=== PATIENT | male | born 1965 | race Asian ===

== ENCOUNTER 2018-05-01 14:06 | Inpatient (IN) | payer OTHER ==
[2018-05-01 15:21] LABS: Absolute Lymphocytes (CBC) 1.6 K/uL (0.7-4.9); Absolute Monocytes 1.7 K/uL (0.1-1.3); Absolute Neutrophil 10.6 K/uL (1.8-8.0); Basophils % 0.2 % (0-1.3); Eosinophils % 0.3 % (0-4.4); Hematocrit 48.2 % (39.6-49.0); Lymphocytes % 11.7 % (15.3-44.8); MCH 33.3 pg (27.0-35.0); MCV 98.2 fL (80-100); MPV 7.7 fL (7.6-11.3); Monocytes % 11.9 % (3.3-12.3); RBC Red Blood Cell Count 4.91 M/uL (4.33-5.43)
[2018-05-01 15:29] LABS: Potassium 3.7 mmol/L (3.5-5.1)
[2018-05-01] MEDS ORDERED: NA CHLORIDE 0.9% 500 ML ONE (15:43)
[2018-05-01] MEDS ORDERED: ONDANSETRON 4 MG/2 ML VIAL ONE (15:55)
[2018-05-01] MEDS ORDERED: MORPHINE 4 MG/ML SYR ONE (15:55)
[2018-05-01] MEDS ORDERED: IBUPROFEN 400 MG TAB PO PRN (16:03)
[2018-05-01] MEDS ORDERED: ONDANSETRON 4 MG/2 ML VIAL IV PRN (16:03)
--- NOTE | 2018-05-01 16:17 | P.HP ---
Certification for Inpatient Patient admitted to: Inpatient With expected LOS: >2 Midnights Patient will require the following post-hospital care: None Practitioner: I am a practitioner with admitting privileges, knowledge of patient current condition, hospital course, and medical plan of care. Services: Services provided to patient in accordance with Admission requirements found in Title 42 Section 412.3 of the Code of Federal Regulations Patient History Date of Service: 05/01/18 Primary Care Provider: none Reason for admission: Right elbow pain and erythema History of Present Illness: 53-year-old [place] male presented to emergency room with right elbow pain, erythema and warmth. Patient reports pain, erythema and warmth to the elbow for 3 days. It is been getting worse. He does not report any injury or insect bite. He denies any hip either. No chills noted. Denies any chest pain, shortness of breath. 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 It is been a long time since he has had a gout attack. Usually his attacks occur her to his toes. He does not take any medication. In the ER the patient was evaluated. Initial white count 13.9, sodium 141, potassium 3.7, BUN of 19, creatinine 1.3 with a GFR 58. Significant erythema, pain noted to the right elbow. Patient was admitted for treatment. When I saw the patient in the ER, he was not able to extend his arm. He appeared stable. Pain under control. Allergies No Known Allergies Allergy (Verified 09/02/15 09:21) Home medications list reviewed: Yes - Past Medical/Surgical History Diabetic: No -: Gout Past Surgical History: Patient denies surgical history Psychosocial/ Personal History: Patient is . 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 He has no children. - Family History Father -: Heart disease - Social History Smoking Status: Never smoker Alcohol use: No CD- Drugs: No Caffeine use: No Place of Residence: Home Review of Systems General: As per HPI Eyes: Unremarkable ENT: Unremarkable Respiratory: Unremarkable Cardiovascular: Unremarkable Gastrointestinal: Unremarkable Genitourinary: Unremarkable Musculoskeletal: Arm Pain, As per HPI Integumentary: As per HPI Neurological: Unremarkable Lymphatics: Unremarkable Physical Examination - Physical Exam General: Alert, In no apparent distress, Oriented x3, Cooperative HEENT: Atraumatic, Normocephalic, PERRLA, Mucous membr. moist/pink Neck: Supple, No Thyromegaly Respiratory: Clear to auscultation bilaterally, Normal air movement Cardiovascular: Normal pulses, Regular rate/rhythm Gastrointestinal: Normal bowel sounds, Soft and benign, Non-distended, No tenderness, No masses, No rebound, No guarding Musculoskeletal: Erythema (Right elbow ), Tenderness (Right elbow), Warmth ( Right elbow) Integumentary: Other (Erythema noted to the right elbow above the elbow and below the elbow noted. Pain noted. He is not able to extend his arm fully.) Neurological: Normal speech, Normal strength at 5/5 x4 extr, Normal tone, Normal affect - Studies Laboratory Data (last 24 hrs) 05/01/18 15:00: Sodium 141, Potassium 3.7, BUN 19 H, Creatinine 1.30, Glucose 99 05/01/18 15:00: WBC 13.9 H, Hgb 16.3, Hct 48.2, Plt Count 271 Assessment and Plan - Problems (Diagnosis) (1) Septic olecranon bursitis of right elbow Current Visit: Yes Status: Acute Plan: Blood cultures obtained. Will start IV vancomycin and Zosyn. Will check x- ray. Will console orthopedics to further evaluate. Patient may require intervention. Will reassess tomorrow. Continue with pain control medication. (2) Dehydration Current Visit: Yes Status: Acute Plan: Continue with IV fluids. Will monitor and adjust appropriately. (3) Renal insufficiency Current Visit: Yes Status: Acute Plan: Continue with IV fluids. Will monitor closely Discharge Plan: Home Plan to discharge in: Greater than 2 days - Advance Directives Does patient have a Living Will: No Does patient have a Durable POA for Healthcare: No - Code Status/Comfort Care Code Status Assessed: Yes Time Spent Managing Pts Care (In Minutes): 55
--- NOTE | 2018-05-01 16:37 | EDPHYS ---
Physician Documentation [facility] Name: Dany Cárdenas Jr Age: 53 yrs Sex: Male : 1965 Arrival Date: 05/01/2018 Time: 14:08 Bed 19 Private MD: ED Physician Brice Rao HPI: 05/01 16:46 This 53 yrs old Male presents to ER via Ambulatory with complaints of ARM kdr SWELLING. 16:46 The patient or guardian complains of decreased range of motion, pain, that is acute, kdr swelling, tenderness. The complaints affect the right tricep, right elbow and palmar aspect of right forearm. Context: The problem was sustained at home, resulted from unknown cause. Onset: The symptoms/episode began/occurred gradually, 1 month(s) ago, and became worse 3 day(s) ago. Treatment prior to arrival includes: no previous treatment. Modifying factors: The symptoms are alleviated by nothing. the symptoms are aggravated by nothing. Associated signs and symptoms: The patient has no apparent associated signs or symptoms. Severity of symptoms: At their worst the symptoms were mild, in the emergency department the symptoms have resolved. The patient has not experienced similar symptoms in the past. The patient has not recently seen a physician. Historical: - Allergies: 14:14 No Known Allergies; aj - Home Meds: 14:14 None [Active]; aj - PMHx: 14:14 Gout; aj - PSHx: 14:14 None; aj - Immunization history:: Adult Immunizations up to date. - Social history:: Smoking status: Patient/guardian denies using tobacco. - Ebola Screening: : Patient negative for fever greater than or equal to 101.5 degrees Fahrenheit, and additional compatible Ebola Virus Disease symptoms Patient denies exposure to infectious person Patient denies travel to an Ebola-affected area in the 21 days before illness onset No symptoms or risks identified at this time. ROS: 16:46 Constitutional: Negative for fever, chills, and weight loss, Eyes: Negative for injury, kdr pain, redness, and discharge, ENT: Negative for injury, pain, and discharge, Neck: Negative for injury, pain, and swelling, Respiratory: Negative for shortness of breath, cough, wheezing, and pleuritic chest pain, Abdomen/GI: Negative for abdominal pain, nausea, vomiting, diarrhea, and constipation, Back: Negative for injury and pain, : Negative for injury, bleeding, discharge, and swelling, MS/Extremity: Negative for injury and deformity, Skin: Negative for injury, rash, and discoloration, Neuro: Negative for headache, weakness, numbness, tingling, and seizure activity. Psych: Negative for depression, anxiety, suicide ideation, homicidal ideation, and hallucinations, Allergy/Immunology: Negative for hives, rash, and allergies, Endocrine: Negative for neck swelling, polydipsia, polyuria, polyphagia, and marked weight changes, Hematologic/Lymphatic: Negative for swollen nodes, abnormal bleeding, and unusual bruising. 16:46 Cardiovascular: Positive for palpitations, Negative for chest pain, edema, orthopnea, paroxysmal nocturnal dyspnea. Exam: 16:46 Constitutional: This is a well developed, well nourished patient who is awake, alert, kdr and in no acute distress. Head/Face: Normocephalic, atraumatic. Eyes: Pupils equal round and reactive to light, extra-ocular motions intact. Lids and lashes normal. Conjunctiva and sclera are non-icteric and not injected. Cornea within normal limits. Periorbital areas with no swelling, redness, or edema. Neck: Trachea midline, no thyromegaly or masses palpated, and no cervical lymphadenopathy. Supple, full range of motion without nuchal rigidity, or vertebral point tenderness. No Meningismus. Chest/axilla: Normal chest wall appearance and motion. Nontender with no deformity. No lesions are appreciated. Cardiovascular: Regular rate and rhythm with a normal S1 and S2. No gallops, murmurs, or rubs. Normal PMI, no JVD. No pulse deficits. Respiratory: Lungs have equal breath sounds bilaterally, clear to auscultation and percussion. No rales, rhonchi or wheezes noted. No increased work of breathing, no retractions or nasal flaring. Abdomen/GI: Soft, non-tender, with normal bowel sounds. No distension or tympany. No guarding or rebound. No evidence of tenderness throughout. Back: No spinal tenderness. No costovertebral tenderness. Full range of motion. Neuro: Awake and alert, GCS 15, oriented to person, place, time, and situation. Cranial nerves II-XII grossly intact. Motor strength 5/5 in all extremities. Sensory grossly intact. Cerebellar exam normal. Normal gait. Psych: Awake, alert, with orientation to person, place and time. Behavior, mood, and affect are within normal limits. 16:46 Musculoskeletal/extremity: ROM: limited active range of motion, limited passive range of motion, in the right arm, limited active range of motion due to pain, limited passive range of motion due to pain, Circulation is intact in all extremities. Sensation intact. Vital Signs: 14:14 BP 168 / 110; Pulse 114; Resp 19; Temp 98.3; Pulse Ox 99% on R/A; Weight 68.04 kg; aj Height 5 ft. 5 in. (165.10 cm); 15:40 BP 173 / 93; Pulse 95; Resp 18; Pulse Ox 98% on R/A; Pain 5/10; em 16:45 BP 166 / 99; Pulse 90; Resp 18; Temp 99.1(O); Pulse Ox 98% on R/A; Pain 3/10; em 14:14 Body Mass Index 24.96 (68.04 kg, 165.10 cm) aj MDM: 16:36 Patient medically screened. kdr 16:46 Data reviewed: vital signs, nurses notes, lab test result(s), EKG, radiologic studies. kdr Counseling: I had a detailed discussion with the patient and/or guardian regarding: the historical points, exam findings, and any diagnostic results supporting the discharge/admit diagnosis, lab results, radiology results, the need for further work-up and treatment in the hospital. 05/01 14:49 Order name: CBC with Diff; Complete [facility] 14:49 Order name: Chem 7; Complete [facility]: [facility] 05[facility] 14:49 Order name: Blood Culture [facility] 14:49 Order name: ESR; Complete [facility]: [facility] 05/[facility] 16:10 Order name: Vancomycin Level Trough [facility] 05/01 16:11 Order name: Basic Metabolic Panel [facility] 05/01 16:11 Order name: Basic Metabolic Panel [facility] 05/01 16:11 Order name: Lactate [facility] 05/01 16:11 Order name: Procalcitonin [facility] 05/01 16:11 Order name: Sedimentation Rate, Westergren [facility] 05/01 16:11 Order name: Uric Acid [facility] 05/01 16:11 Order name: Urinalysis [facility] 05/01 16:11 Order name: Basic Metabolic Panel [facility] 05/01 16:11 Order name: Basic Metabolic Panel [facility] 05/01 16:11 Order name: Basic Metabolic Panel [facility] 05/01 16:11 Order name: Basic Metabolic Panel [facility] 05/01 16:11 Order name: CBC with Automated Diff [facility] 05/01 16:11 Order name: CBC with Automated Diff [facility] 05/01 16:11 Order name: CBC with Automated Diff [facility] 05/01 16:11 Order name: CBC with Automated Diff [facility] 05/01 16:11 Order name: CBC with Automated Diff [facility] 05/01 16:11 Order name: CBC with Automated Diff [facility] 05/01 16:11 Order name: Magnesium [facility] 05/01 16:11 Order name: Magnesium [facility] 05/01 16:11 Order name: Magnesium [facility] 05/01 16:11 Order name: Magnesium [facility] 05/01 16:11 Order name: Magnesium ED[facility] 05/01 16:11 Order name: Magnesium [facility] 05/01 16:11 Order name: T4 Free [facility] 05/01 16:11 Order name: T4 Free [facility] 05/01 16:11 Order name: CONS Physician Consult [facility] 05/01 16:11 Order name: Heart Healthy [facility] 05/01 16:11 Order name: NPO [facility] 05/01 16:11 Order name: Thyroid Stimulating Hormone [facility] 05/01 16:11 Order name: Thyroid Stimulating Hormone [facility] 05/01 16:12 Order name: Elbow Right 3 View EDMS Administered Medications: 15:44 Drug: NS 0.9% 500 ml Route: IV; Rate: bolus; Site: left antecubital; em 17:04 Follow up: IV Status: Completed infusion; IV Intake: 500ml em 16:00 Drug: morphine 4 mg Route: IVP; Site: left antecubital; ss 17:04 Follow up: Response: No adverse reaction; Pain is decreased em 16:00 Drug: Zofran 4 mg Route: IVP; Site: left antecubital; ss 17:04 Follow up: Response: No adverse reaction em 16:45 Drug: vancoMYCIN 1.5 grams Route: IVPB; Rate: calculated rate; Site: left antecubital; em 17:05 Follow up: Response: No adverse reaction; IV Status: Infusion continued upon admission em 16:45 Drug: Clindamycin 600 mg Route: IVPB; Infused Over: 30 mins; Site: left antecubital; em 17:05 Follow up: Response: No adverse reaction; IV Status: Infusion continued upon admission em Disposition: 05/01/18 16:36 Hospitalization ordered by Lui Cabezas for Observation. Preliminary diagnosis is left elbow infection. - Bed requested for Telemetry/MedSurg (observation). - Status is Observation. em - Condition is Fair. - Problem is new. - Symptoms are unchanged. UTI on Admission? No Signatures: Dispatcher [employer] EDMS Angle Oconnell RN RN Brice Gallardo MD MD kdr Munoz, Edgar, [employer] Chinyere Madrigal RN RN ss Amy Torrez Corrections: (The following items were deleted from the chart) 16:43 16:36 Hospitalization Ordered by Lui Cabezas DO for Observation. Preliminary eb diagnosis is left elbow infection. Bed requested for Telemetry/MedSurg (observation). Status is Observation. Condition is Fair. Problem is new. Symptoms are unchanged. UTI on Admission? No. kdr 16:51 16:46 Constitutional: This is a well developed, well nourished patient who is awake, kdr alert, and in no acute distress. Head/Face: Normocephalic, atraumatic. Eyes: Pupils equal round and reactive to light, extra-ocular motions intact. Lids and lashes normal. Conjunctiva and sclera are non-icteric and not injected. Cornea within normal limits. Periorbital areas with no swelling, redness, or edema. Neck: Trachea midline, no thyromegaly or masses palpated, and no cervical lymphadenopathy. Supple, full range of motion without nuchal rigidity, or vertebral point tenderness. No Meningismus. Chest/axilla: Normal chest wall appearance and motion. Nontender with no deformity. No lesions are appreciated. Cardiovascular: Regular rate and rhythm with a normal S1 and S2. No gallops, murmurs, or rubs. Normal PMI, no JVD. No pulse deficits. Respiratory: Lungs have equal breath sounds bilaterally, clear to auscultation and percussion. No rales, rhonchi or wheezes noted. No increased work of breathing, no retractions or nasal flaring. Abdomen/GI: Soft, non-tender, with normal bowel sounds. No distension or tympany. No guarding or rebound. No evidence of tenderness throughout. Back: No spinal tenderness. No costovertebral tenderness. Full range of motion. Skin: Warm, dry with normal turgor. Normal color with no rashes, no lesions, and no evidence of cellulitis. MS/ Extremity: Pulses equal, no cyanosis. Neurovascular intact. Full, normal range of motion. Neuro: Awake and alert, GCS 15, oriented to person, place, time, and situation. Cranial nerves II-XII grossly intact. Motor strength 5/5 in all extremities. Sensory grossly intact. Cerebellar exam normal. Normal gait. Psych: Awake, alert, with orientation to person, place and time. Behavior, mood, and affect are within normal limits. kdr 17:23 16:43 05/01/2018 16:36 Hospitalization Ordered by Lui Cabezas DO for Observation. em Preliminary diagnosis is left elbow infection. Bed requested for Telemetry/MedSurg (observation). Status is Observation. Condition is Fair. Problem is new. Symptoms are unchanged. UTI on Admission? No. eb
--- NOTE | 2018-05-01 16:37 | ER ---
Nurse's Notes [facility] Name: Dany Cárdenas Jr Age: 53 yrs Sex: Male : 1965 Arrival Date: 05/01/2018 Time: 14:08 Bed 19 Private MD: Diagnosis: left elbow infection Presentation: 05/01 14:13 Presenting complaint: Patient states: Right elbow swelling x 3 days. Transition of aj care: patient was not received from another setting of care. Onset of symptoms was April 28, 2018. Risk Assessment: Do you want to hurt yourself or someone else? Patient reports no desire to harm self or others. Initial Sepsis Screen: Does the patient meet any 2 criteria? No. Patient's initial sepsis screen is negative. Does the patient have a suspected source of infection? No. Patient's initial sepsis screen is negative. Care prior to arrival: None. 14:13 Method Of Arrival: Ambulatory aj 14:13 Acuity: PAVITHRA 3 aj Triage Assessment: 14:14 General: Appears in no apparent distress. comfortable, Behavior is calm, cooperative, aj appropriate for age. Pain: Complains of pain in right elbow. Neuro: Level of Consciousness is awake, alert, obeys commands, Oriented to person, place, time, situation, Appropriate for age. Respiratory: Airway is patent Respiratory effort is even, unlabored, Respiratory pattern is regular, symmetrical. Derm: Skin is intact, is healthy with good turgor, Skin is pink, warm \T\ dry. normal. Musculoskeletal: Swelling present in right elbow Reports pain in right elbow. Historical: - Allergies: 14:14 No Known Allergies; aj - Home Meds: 14:14 None [Active]; aj - PMHx: 14:14 Gout; aj - PSHx: 14:14 None; aj - Immunization history:: Adult Immunizations up to date. - Social history:: Smoking status: Patient/guardian denies using tobacco. - Ebola Screening: : Patient negative for fever greater than or equal to 101.5 degrees Fahrenheit, and additional compatible Ebola Virus Disease symptoms Patient denies exposure to infectious person Patient denies travel to an Ebola-affected area in the 21 days before illness onset No symptoms or risks identified at this time. Screenin:07 Abuse screen: Denies threats or abuse. Nutritional screening: No deficits noted. em Tuberculosis screening: No symptoms or risk factors identified. Fall Risk None identified. Assessment: 15:00 General: Appears in no apparent distress. uncomfortable, Behavior is calm, cooperative. em Pain: Complains of pain in right arm and right elbow Pain currently is 5 out of 10 on a pain scale. Pain began 2-3 days ago. Neuro: Level of Consciousness is awake, alert, obeys commands, Oriented to person, place, time, situation. Cardiovascular: Capillary refill < 3 seconds Patient's skin is warm and dry. Respiratory: Airway is patent Respiratory effort is even, unlabored, Respiratory pattern is regular, symmetrical. GI: Abdomen is flat. : No signs and/or symptoms were reported regarding the genitourinary system. EENT: No signs and/or symptoms were reported regarding the EENT system. Derm: Skin is intact, Skin is pink, warm \T\ dry. redness and swelling noted to right elbow, minimal range of motion, started 3 days ago. Musculoskeletal: Circulation, motion, and sensation intact. Capillary refill < 3 seconds. 15:15 General: The previous assessment is accurate, call light remains within reach. . ss 15:40 Reassessment: Patient and/or family updated on plan of care and expected duration. Pain em level reassessed. Dr. Cabezas at bedside discussing POC. 16:00 Reassessment: Patient appears in no apparent distress at this time. Patient and/or em family updated on plan of care and expected duration. Pain level reassessed. Patient is alert, oriented x 3, equal unlabored respirations, skin warm/dry/pink. Patient states feeling better. Vital Signs: 14:14 BP 168 / 110; Pulse 114; Resp 19; Temp 98.3; Pulse Ox 99% on R/A; Weight 68.04 kg; aj Height 5 ft. 5 in. (165.10 cm); 15:40 BP 173 / 93; Pulse 95; Resp 18; Pulse Ox 98% on R/A; Pain 5/10; em 16:45 BP 166 / 99; Pulse 90; Resp 18; Temp 99.1(O); Pulse Ox 98% on R/A; Pain 3/10; em 14:14 Body Mass Index 24.96 (68.04 kg, 165.10 cm) aj ED Course: 13:00 No provider procedures requiring assistance completed. Inserted saline lock: 20 gauge em in left antecubital area, using aseptic technique. Blood collected. 13:00 Initial lab(s) drawn, by me, sent to lab. First set of blood cultures drawn by me. em 14:08 Patient arrived in ED. rg4 14:13 Triage completed. aj 14:14 Arm band placed on left wrist. Patient placed in an exam room. aj 14:22 Holger Corbett LVN is Primary Nurse. em 14:48 Brice Rao MD is Attending Physician. kdr 16:07 Patient has correct armband on for positive identification. Bed in low position. Call em light in reach. 16:34 Lui Cabezas DO is Hospitalizing Provider. kdr 17:03 Patient admitted, IV remains in place. em Administered Medications: 15:44 Drug: NS 0.9% 500 ml Route: IV; Rate: bolus; Site: left antecubital; em 17:04 Follow up: IV Status: Completed infusion; IV Intake: 500ml em 16:00 Drug: morphine 4 mg Route: IVP; Site: left antecubital; ss 17:04 Follow up: Response: No adverse reaction; Pain is decreased em 16:00 Drug: Zofran 4 mg Route: IVP; Site: left antecubital; ss 17:04 Follow up: Response: No adverse reaction em 16:45 Drug: vancoMYCIN 1.5 grams Route: IVPB; Rate: calculated rate; Site: left antecubital; em 17:05 Follow up: Response: No adverse reaction; IV Status: Infusion continued upon admission em 16:45 Drug: Clindamycin 600 mg Route: IVPB; Infused Over: 30 mins; Site: left antecubital; em 17:05 Follow up: Response: No adverse reaction; IV Status: Infusion continued upon admission em Intake: 17:04 IV: 500ml; Total: 500ml. em Outcome: 16:36 Decision to Hospitalize by Provider. kdr 17:03 Admitted to Med/surg accompanied by nurse, via wheelchair, room 422, with chart, Report em called to SPENCER Rahman 17:03 Condition: good 17:03 Instructed on the need for admit, Demonstrated understanding of instructions. 17:23 Patient left the ED. em Signatures: Angle Oconnell RN RN aj Rittger, Kevin, MD MD [facility] Holger Corbett LVN LVN em Chinyere Garduno, RN RN ss Patrick, Mallory rg4
[2018-05-01] MEDS ORDERED: CLINDAMYCIN INJ 600 MG in NA CHLORIDE 0.9% 50 ML IV ONE (17:00)
[2018-05-01] MEDS ORDERED: VANCOMYCIN 1.25 GM in NA CHLORIDE 0.9% 250 ML IVPB SCH (17:00)
--- NOTE | 2018-05-01 17:47 | RAD REPORT ---
EXAM DESCRIPTION: RAD - Elbow Right 3 View - 05/01/2018 5:21 pm CLINICAL HISTORY: Soft tissue swelling, septic bursitis COMPARISON: None. FINDINGS: No fracture is identified and no elevated posterior fat pad. There is no dislocation or pe riosteal reaction noted. No foreign body in the soft tissues. Posterior and medial soft tissue edema changes are present. IMPRESSION: Soft tissue swelling. No acute bone or joint finding seen.
[2018-05-01] MEDS: HYDROCODONE/APAP 7.5/325 MG TAB PO PRN (18:44)
[2018-05-01] MEDS: ENOXAPARIN 40 MG/0.4 ML SQ SCH (18:45)
[2018-05-01] MEDS: NA CHLORIDE 0.9% 1,000 ML IV SCH (18:46)
[2018-05-01] MEDS: PANTOPRAZOLE 40MG TABLET PO SCH (18:48)
[2018-05-01 18:50] LABS: Urine Appearance CLEAR; Urine Bilirubin NEGATIVE (NEG); Urine Blood NEGATIVE (NEG); Urine Color YELLOW; Urine Glucose NEGATIVE (NEG); Urine Protein NEGATIVE (NEG); Urine Specific Gravity 1.015 (1.005-1.030); Urine Urobilinogen 0.2 mg/dL (0.2-1.0)
[2018-05-01] MEDS: PIPER/TAZO/NS 3.375gm 3.375 GM/100 ML BAG IVPB SCH (18:53)
[2018-05-01 18:54] LABS: Urine Microscopic Reflex NO UMIC
[2018-05-01] MEDS ORDERED: VANCOMYCIN 500 MG in NA CHLORIDE 0.9% 100 ML IVPB ONE (21:00)
[2018-05-02] MEDS: HYDROCODONE/APAP 7.5/325 MG TAB PO PRN ×2 (00:47→16:08)
[2018-05-02] MEDS: PIPER/TAZO/NS 3.375gm 3.375 GM/100 ML BAG IVPB SCH ×3 (00:47→16:07)
[2018-05-02 05:24] LABS: Absolute Lymphocytes (CBC) 1.8 K/uL (0.7-4.9); Absolute Monocytes 1.5 K/uL (0.1-1.3); Basophils % 0.2 % (0-1.3); Eosinophils % 1.2 % (0-4.4); Hematocrit 39.7 % (39.6-49.0); Lymphocytes % 19.6 % (15.3-44.8); MCH 33.7 pg (27.0-35.0); MCV 98.9 fL (80-100); MPV 7.7 fL (7.6-11.3); RBC Red Blood Cell Count 4.01 M/uL (4.33-5.43)
[2018-05-02 05:53] LABS: Magnesium 2.1 mg/dL (1.8-2.4); Potassium 4.6 mmol/L (3.5-5.1); Thyroid Stimulating Hormone 1.87 uIU/mL (0.36-3.74)
[2018-05-02] MEDS: NA CHLORIDE 0.9% 1,000 ML IV SCH (06:39)
[2018-05-02] MEDS: PANTOPRAZOLE 40MG TABLET PO SCH (07:30)
[2018-05-02] MEDS ORDERED: VANCOMYCIN 1 GM in NA CHLORIDE 0.9% 500 ML IVPB SCH (09:00)
[2018-05-02] MEDS ORDERED: VANCOMYCIN 1.25 GM in NA CHLORIDE 0.9% 250 ML IVPB SCH (09:00)
[2018-05-02] MEDS: ENOXAPARIN 40 MG/0.4 ML SQ SCH (09:44)
--- NOTE | 2018-05-02 10:03 | P.PN ---
Subjective Date of Service: 05/02/18 Primary Care Provider: none Chief Complaint: Right elbow pain and erythema Subjective: Improving (Erythema and pain to the right elbow improved.) Physical Examination - Vital Signs Temperature: 96.7 F Blood Pressure: 140/76 Pulse: 64 Respirations: 20 Pulse Ox (%): 98 - Physical Exam General: Alert, In no apparent distress, Oriented x3, Cooperative HEENT: Atraumatic Neck: Supple Respiratory: Clear to auscultation bilaterally, Normal air movement Cardiovascular: Normal pulses, Regular rate/rhythm Gastrointestinal: Normal bowel sounds, Soft and benign, Non-distended, No tenderness, No masses, No rebound, No guarding Musculoskeletal: Other (Significantly less erythema to the right elbow. He has better [id number] since yesterday. Less pain noted. Less swelling noted.) Integumentary: Other (As above) Neurological: Normal speech, Normal strength at 5/5 x4 extr, Normal tone, Normal affect - Studies Laboratory Data (last 24 hrs) 05/01/18 15:00: Uric Acid 10.0 H 05/01/18 15:00: Sodium 141, Potassium 3.7, BUN 19 H, Creatinine 1.30, Glucose 99 05/01/18 15:00: WBC 13.9 H, Hgb 16.3, Hct 48.2, Plt Count 271 Medications List Reviewed: Yes Assessment & Plan - Problems (Diagnosis) (1) Septic olecranon bursitis of right elbow Onset Date: 05/02/18 Current Visit: Yes Status: Acute Plan: Patient improving with IV antibiotic therapy. Currently on vancomycin and Zosyn. Better range of motion, less pain, less swelling noted. Will have orthopedics evaluate patient. Patient may not require any intervention. I will turn the service over to Dr. Salazar tomorrow. I will go over the plan of care with her. (2) Dehydration Onset Date: 05/02/18 Current Visit: Yes Status: Acute Plan: Continue with IV fluids. Will monitor and adjust appropriately. (3) Renal insufficiency Onset Date: 05/02/18 Current Visit: Yes Status: Acute Plan: Continue with IV fluids. Will monitor closely Discharge Plan: Home Plan to discharge in: 24 Hours Time Spent Managing Pts Care (In Minutes): 55
[2018-05-02] MEDS: NACHLORIDE 0.45% 1,000 ML IV SCH ×2 (14:26→20:12)
--- NOTE | 2018-05-02 20:04 | P.CNS ---
Date of Consult: 05/02/18 Reason for Consult: septic bursitis left elbow Requesting Physician: Lui Cabezas Primary Care Provider: none Chief Complaint: Right elbow pain and erythema History of Present Illness: This patient noted onset of erythema and tenderness over point of olecranon Wednesday of last week. The elbow became more and more tender and swollen, but was not associated with fever or chills. The patient patient came to the ED Wednesday~ 2pm and was admitted with septic bursitis with empiric treatment with Vanc and Zosyn. The patient has had multiple episodes of gout confined to great toes, but has had no regular treatment with uricosuric like allopurinol. The patient' s arm has improved in 24 hours with iv abx and elevation. WBCs have decreased from 13.9 to 9.5 with neutrophils decrreasing from 76% to 68%. Uric acid level was high at 10.0, sedimentation rate was 7 mm/hr. Allergies No Known Allergies Allergy (Verified 09/02/15 09:21) Home Medications: NK [No Home Meds] 05/01/18 - Past Medical/Surgical History Diabetic: No -: Gout bilat toes Psychosocial/ Personal History: Patient is . 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 He has no children. - Family History Father Medical History: Heart disease - Social History Alcohol use: No CD- Drugs: No Caffeine use: No Place of Residence: Home Review of Systems 10-point ROS is otherwise unremarkable Physical Examination Temp Pulse Resp BP Pulse Ox 97.4 F 88 20 175/84 H 100 05/02/18 16:00 05/02/18 16:00 05/02/18 16:00 05/02/18 16:00 05/02/18 16:00 General: Alert, Oriented x3, Cooperative, Mild distress (Patient is able to flex right elbow from 70*to 115* freely moving back and forth to rule out intra articular sepsis. Septic joint most likely would be rigidly held at 45* with turgid capsule. ) HEENT: Atraumatic, Normocephalic, Mucous membr. moist/pink Neck: Supple Respiratory: Clear to auscultation bilaterally, Normal air movement Cardiovascular: Normal pulses, Regular rate/rhythm Capillary refill: <2 Seconds Gastrointestinal: Normal bowel sounds, Soft and benign, Non-distended Musculoskeletal: Swelling (Soft tissue edema palpable over olecranon, no fluid ballotment palpable for aspiration. Erythema shook on admit show redness receding.), Erythema, Tenderness, Warmth Integumentary: Tenderness/swelling (located over distal triceps, olecranon. and ulnar forearm.), Erythema, Warmth Neurological: Normal strength at 5/5 x4 extr, Sensation intact External genitalia: Deferred Rectal: Deferred - Problems (1) Septic olecranon bursitis of right elbow Onset Date: 05/02/18 Current Visit: Yes Status: Acute Plan: Would continue treatment for septic bursitis with current antibiotics. Cannot find fluid for aspiration. Will follow closely with I&D if sxs increasing, but have high suspicion of gout attack right olecranon bursa with Uric Acid 10.0. Will DC ibuprofen and start Celebrex 200 mg bid.
[2018-05-02] MEDS: CELECOXIB 100 MG CAPSULE PO SCH (20:12)
[2018-05-02] MEDS: TRAMADOL HCL 50 MG TAB PO PRN (21:40)
[2018-05-03] MEDS: PIPER/TAZO/NS 3.375gm 3.375 GM/100 ML BAG IVPB SCH ×3 (00:43→17:05)
[2018-05-03] MEDS: HYDROCODONE/APAP 7.5/325 MG TAB PO PRN ×3 (00:45→19:39)
[2018-05-03] MEDS: VANCOMYCIN 1.25 GM in NA CHLORIDE 0.9% 250 ML IVPB SCH ×2 (03:48→20:52)
[2018-05-03] MEDS: ACETAMINOPHEN 500 MG TAB PO PRN ×2 (03:50→20:52)
[2018-05-03] MEDS: NACHLORIDE 0.45% 1,000 ML IV SCH ×2 (04:39→17:06)
[2018-05-03 04:49] LABS: Absolute Lymphocytes (CBC) 1.8 K/uL (0.7-4.9); Absolute Monocytes 1.3 K/uL (0.1-1.3); Absolute Neutrophil 6.7 K/uL (1.8-8.0); Basophils % 0.2 % (0-1.3); Eosinophils % 1.2 % (0-4.4); Hematocrit 43.4 % (39.6-49.0); Lymphocytes % 18.3 % (15.3-44.8); MCH 33.7 pg (27.0-35.0); MCV 98.2 fL (80-100); MPV 7.9 fL (7.6-11.3); Monocytes % 13.4 % (3.3-12.3); RBC Red Blood Cell Count 4.42 M/uL (4.33-5.43)
[2018-05-03 05:02] LABS: Magnesium 2.2 mg/dL (1.8-2.4); Potassium 4.9 mmol/L (3.5-5.1)
[2018-05-03] MEDS: PANTOPRAZOLE 40MG TABLET PO SCH (06:32)
[2018-05-03] MEDS: CELECOXIB 100 MG CAPSULE PO SCH ×2 (09:17→20:51)
[2018-05-03] MEDS: TRAMADOL HCL 50 MG TAB PO PRN (12:06)
--- NOTE | 2018-05-03 16:01 | P.PN ---
Subjective Date of Service: 05/03/18 Primary Care Provider: none Chief Complaint: Right elbow pain and erythema Pt seen and examined at bedside with RN. Case DW with Patient and family at bedside. Feeling better today. States Pain is better and Swelling is getting better as well. Review of Systems General: As per HPI Physical Examination - Vital Signs Temperature: 97.4 F Blood Pressure: 103/82 Pulse: 59 Respirations: 18 Pulse Ox (%): 99 - Physical Exam General: Alert, In no apparent distress HEENT: Atraumatic, PERRLA, EOMI Neck: Supple, JVD not distended Respiratory: Clear to auscultation bilaterally, Normal air movement Cardiovascular: Regular rate/rhythm, Normal S1 S2 Gastrointestinal: Normal bowel sounds, No tenderness Musculoskeletal: Erythema, Tenderness, Warmth (Right Elbow. Swelling improved from before. FROM on the right elbow. Mild Pain noted. ) Integumentary: No rashes Neurological: Normal speech, Normal tone, Normal affect Lymphatics: No axilla or inguinal lymphadenopathy - Studies Medications List Reviewed: Yes Assessment & Plan - Problems (Diagnosis) (1) Septic olecranon bursitis of right elbow Onset Date: 05/02/18 Current Visit: Yes Status: Acute Plan: Possible Septic Olecranon bursitis vs Gouty arthritis -IV vanc and zosyn -ortho Consulted. Appreciate reccs -Cerebrex 200mg daily -Awaiting clinical Improvement (2) Renal insufficiency Onset Date: 05/02/18 Current Visit: Yes Status: Resolved (3) Dehydration Onset Date: 05/02/18 Current Visit: Yes Status: Resolved Discharge Plan: Home Plan to discharge in: 24 Hours - Code Status/Comfort Care Code Status Assessed: Yes Critical Care: No
--- NOTE | 2018-05-03 21:00 | P.PN ---
Date of Service: 05/03/18 S: PATIENT IS MORE COMFORTABLE TODAY, FULLY EXTENDING AND FLEXING THE RIGHT ELBOW. O: AFEBRILE, VSS, WBC 10.0, 67% NEUTROPHILS, HGB 14.9, GFR 63, PAIN 4,4,3,0,5/ 10. NORCO 7.5 3 TABS/DAY AND TRAMADOL 2 TABS TODAY. ARM HAS DECREASED CIRCUMFERENCE FURTHER TODAY, ERYTHEMA AND WARMTH DECREASING, BUT STILL INVOLVES ONLY MEDIAL ELBOW TO INCLUDE PROXIMAL 1/3 FOREARM AND DISTAL 1/4 UPPER ARM. NO FLUID FOCUSED IN OLECRANON BURSA TO PALPATION. A: NO INDICATION FOR I&D P: CONTINUE TO FOLLOW. PROCALCITONIN < 0.05, LACTIC ACID 1.1
[2018-05-04] MEDS: TRAMADOL HCL 50 MG TAB PO PRN ×2 (00:11→12:30)
[2018-05-04] MEDS: PIPER/TAZO/NS 3.375gm 3.375 GM/100 ML BAG IVPB SCH ×3 (00:11→17:27)
[2018-05-04] MEDS: NACHLORIDE 0.45% 1,000 ML IV SCH ×3 (03:00→19:56)
[2018-05-04] MEDS: HYDROCODONE/APAP 7.5/325 MG TAB PO PRN ×2 (03:46→17:27)
[2018-05-04 05:58] LABS: Absolute Lymphocytes (CBC) 1.2 K/uL (0.7-4.9); Absolute Monocytes 1.3 K/uL (0.1-1.3); Basophils % 0.6 % (0-1.3); Hematocrit 40.7 % (39.6-49.0); Lymphocytes % 17.6 % (15.3-44.8); MCH 33.9 pg (27.0-35.0); MCV 96.2 fL (80-100); Monocytes % 19.2 % (3.3-12.3); RBC Red Blood Cell Count 4.23 M/uL (4.33-5.43)
[2018-05-04 06:10] LABS: Magnesium 2.3 mg/dL (1.8-2.4); Potassium 4.4 mmol/L (3.5-5.1)
[2018-05-04 07:39] LABS: Blood Morphology Comment NOT SEEN (NOT SEEN); Platelet Estimate ADEQ
[2018-05-04] MEDS: PANTOPRAZOLE 40MG TABLET PO SCH (07:47)
[2018-05-04] MEDS: CELECOXIB 100 MG CAPSULE PO SCH ×2 (08:58→19:56)
[2018-05-04] MEDS: LISINOPRIL 10 MG TAB PO SCH (13:33)
[2018-05-04] MEDS: VANCOMYCIN 1.25 GM in NA CHLORIDE 0.9% 250 ML IVPB SCH (14:45)
--- NOTE | 2018-05-04 15:46 | P.PN ---
Subjective Date of Service: 05/04/18 Primary Care Provider: none Chief Complaint: Right elbow pain and erythema Pt seen and examined at bedside with RN. Case DW with Patient and family at bedside. Feeling better today. Swelling better, Warm to touch still. Review of Systems General: As per HPI Physical Examination - Vital Signs Temperature: 97.5 F Blood Pressure: 172/80 Pulse: 61 Respirations: 16 Pulse Ox (%): 98 - Physical Exam General: Alert, In no apparent distress, Oriented x3 HEENT: Atraumatic, PERRLA, EOMI Neck: Supple, JVD not distended Respiratory: Clear to auscultation bilaterally, Normal air movement Cardiovascular: Regular rate/rhythm, Normal S1 S2 Gastrointestinal: Normal bowel sounds, No tenderness Musculoskeletal: Swelling, Erythema, Tenderness, Warmth Integumentary: No rashes Neurological: Normal speech, Normal tone, Normal affect Lymphatics: No axilla or inguinal lymphadenopathy - Studies Medications List Reviewed: Yes Assessment & Plan - Problems (Diagnosis) (1) Septic olecranon bursitis of right elbow Onset Date: 05/02/18 Current Visit: Yes Status: Acute Plan: Possible Septic Olecranon bursitis vs Gouty arthritis -IV vanc and zosyn -ortho Consulted. Appreciate reccs -Cerebrex 200mg daily -Awaiting clinical Improvement (2) Renal insufficiency Onset Date: 05/02/18 Current Visit: Yes Status: Resolved (3) Dehydration Onset Date: 05/02/18 Current Visit: Yes Status: Resolved Discharge Plan: Home Plan to discharge in: 24 Hours - Code Status/Comfort Care Code Status Assessed: Yes Critical Care: No
[2018-05-04] MEDS ORDERED: HYDRALAZINE HCL 20 MG/ML VIAL IV ONE ×2 (16:15→18:30)
--- NOTE | 2018-05-04 18:37 | P.PN ---
Date of Service: 05/04/18 S: PATIENT DENIES PAIN TODAY, EASILY EXTENDING AND FLEXING HIS RIGHT ELBOW. O: AFEBRILE, BP 201-172/80-91 TODAY, WBC 6.6, 61% NEUTROPHILS, HGB 14.3, GFR 58 , PAIN 4,4,3,0,5/10. NORCO 7.5 3 TABS/DAY AND TRAMADOL 2 TABS TODAY. ARM HAS DECREASED EDEMA; ERYTHEMA AND WARMTH ALSO DECREASING TO FOCUS ON POINT OF OLECRANON WHERE SMALL AMOUNT OF BURSAL FLUID IS PALPABLE. A: NO INDICATION FOR I&D. PATIENT APPROPRIATE FOR CONVERSION TO P.O. ANTIBIOTIC AND DISCHARGE ON CELEBREX 200 mg BID FOR TREATMENT OF GOUT P: PATIENT CAN F/U MY OFFICE IN 7-10 DAYS OR PRN.
[2018-05-05] MEDS: PIPER/TAZO/NS 3.375gm 3.375 GM/100 ML BAG IVPB SCH ×2 (00:50→11:02)
[2018-05-05 04:18] LABS: Absolute Lymphocytes (CBC) 0.8 K/uL (0.7-4.9); Absolute Monocytes 0.9 K/uL (0.1-1.3); Absolute Neutrophil 5.9 K/uL (1.8-8.0); Basophils % 0.4 % (0-1.3); Eosinophils % 1.6 % (0-4.4); Hematocrit 41.9 % (39.6-49.0); Lymphocytes % 10.3 % (15.3-44.8); MCH 33.7 pg (27.0-35.0); MCV 97.3 fL (80-100); MPV 7.5 fL (7.6-11.3); Monocytes % 11.1 % (3.3-12.3); RBC Red Blood Cell Count 4.31 M/uL (4.33-5.43)
[2018-05-05 04:20] LABS: Magnesium 2.2 mg/dL (1.8-2.4); Potassium 4.5 mmol/L (3.5-5.1)
[2018-05-05] MEDS: LISINOPRIL 10 MG TAB PO SCH (07:59)
[2018-05-05] MEDS: CELECOXIB 100 MG CAPSULE PO SCH (08:00)
[2018-05-05] MEDS: PANTOPRAZOLE 40MG TABLET PO SCH (08:00)
[2018-05-05] MEDS: VANCOMYCIN 1.25 GM in NA CHLORIDE 0.9% 250 ML IVPB SCH (08:31)
[2018-05-05] MEDS: NACHLORIDE 0.45% 1,000 ML IV SCH (08:59)
--- NOTE | 2018-05-05 15:58 | P.DS ---
Admission Date: 05/01/18 Discharge Date: 05/05/18 Primary Care Provider: none Disposition: ROUTINE DISCHARGE Discharge Condition: GOOD Reason for Admission: Right elbow pain and erythema Consultations: Ortho - Problems (1) Septic olecranon bursitis of right elbow Onset Date: 05/02/18 Status: Acute (2) Renal insufficiency Onset Date: 05/02/18 Status: Resolved (3) Dehydration Onset Date: 05/02/18 Status: Resolved Brief History of Present Illness: 53-year-old [place] male presented to emergency room with right elbow pain, erythema and warmth. Patient reports pain, erythema and warmth to the elbow for 3 days. It is been getting worse. He does not report any injury or insect bite. He denies any hip either. No chills noted. Denies any chest pain, shortness of breath. 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 It is been a long time since he has had a gout attack. Usually his attacks occur her to his toes. He does not take any medication. In the ER the patient was evaluated. Initial white count 13.9, sodium 141, potassium 3.7, BUN of 19, creatinine 1.3 with a GFR 58. Significant erythema, pain noted to the right elbow. Patient was admitted for treatment. When I saw the patient in the ER, he was not able to extend his arm. He appeared stable. Pain under control. Hospital Course: Overall during the hospital stay patient remained stable Patient was initially admitted to the hospital for right-sided elbow swelling was thought to have right septic elbow bursitis. Orthopedic was consulted. Who recommended the patient be started on cerebrex 200 mg along with IV antibiotics for possible diagnosis of septic arthritis versus gouty arthritis. Patient had marked resolution in his symptoms over the next 48 hr were his swelling erythema and tenderness had completely resolved. After starting of cerebrex. Patient's cultures for blood came back negative and as his elbow swelling had subsided patient was then discharged home to have close followup with Orthopedics. Patient was asked to continue taking cerebrex for gout along with your saddle which was prescribed for total of 30 days. Patient was also asked to continue taking PO doxycycline for 10 days Vital Signs/Physical Exam: Temp Pulse Resp BP Pulse Ox 98.2 F 72 16 168/81 H 99 05/05/18 12:00 05/05/18 12:00 05/05/18 12:00 05/05/18 12:00 05/05/18 12:00 General: Alert, In no apparent distress HEENT: Atraumatic, PERRLA, EOMI Neck: Supple, JVD not distended Respiratory: Clear to auscultation bilaterally, Normal air movement Cardiovascular: Regular rate/rhythm, Normal S1 S2 Gastrointestinal: Normal bowel sounds, No tenderness Musculoskeletal: No tenderness Integumentary: No rashes Neurological: Normal speech, Normal tone, Normal affect Lymphatics: No axilla or inguinal lymphadenopathy Laboratory Data at Discharge: WBC 7.7 K/uL (4.3-10.9) D 05/05/18 03:43 Hgb 14.5 g/dL (13.6-17.9) 05/05/18 03:43 Hct 41.9 % (39.6-49.0) 05/05/18 03:43 Plt Count 224 K/uL (152-406) 05/05/18 03:43 Sodium 140 mmol/L (136-145) 05/05/18 03:43 Potassium 4.5 mmol/L (3.5-5.1) 05/05/18 03:43 BUN 13 mg/dL (7-18) 05/05/18 03:43 Creatinine 1.20 mg/dL (0.55-1.3) 05/05/18 03:43 Glucose 98 mg/dL (74-106) 05/05/18 03:43 Uric Acid 10.0 mg/dL (3.5-7.2) H 05/01/18 15:00 Magnesium 2.2 mg/dL (1.8-2.4) 05/05/18 03:43 Home Medications: Celecoxib [Celebrex*] 200 mg PO BID #60 cap 05/04/18 Febuxostat [Uloric] 80 mg PO DAILY #30 tablet 05/04/18 Pantoprazole [Protonix Tab*] 40 mg PO ACB #30 tab 05/04/18 Amlodipine Besylate [Norvasc] 5 mg PO DAILY #30 tablet 05/05/18 Doxycycline Hyclate 100 mg PO BID #14 capsule 05/05/18 Lisinopril [Prinivil*] 10 mg PO DAILY #30 tab 05/05/18 New Medications: Amlodipine Besylate [Norvasc] 5 mg PO DAILY #30 tablet Celecoxib [Celebrex*] 200 mg PO BID #60 cap Doxycycline Hyclate 100 mg PO BID #14 capsule Febuxostat [Uloric] 80 mg PO DAILY #30 tablet Lisinopril [Prinivil*] 10 mg PO DAILY #30 tab Pantoprazole [Protonix Tab*] 40 mg PO ACB #30 tab Diet: Regular Activity: Ad mehrdad Followup: Corwin Greenwood MD [ACTIVE - CAN ADMIT] - 1 Week (call the office to make an appointment in 7-10 days)
== END 2018-05-05 13:31 | disposition home or self-care (01) | DRG 558 ==
LOC: ER 14:06 → ERHOLD 16:04 → 4TH 16:57
PROVIDERS: ADMIT Family Medicine; ATTEND Family Medicine
DX: M71.121 Other infective bursitis, right elbow (principal); E86.0 Dehydration; N28.9 Disorder of kidney and ureter, unspecified; M10.9 Gout, unspecified
CPT/HCPCS: 36415; 80048; 80202; 81003; 83605; 83735; 84145; 84439; 84443; 84550; 85025; 85652; 87040; 96361; 96365; 96368; 96375; 99285; J0360; J1650; J2405; J2543; J7030

== ENCOUNTER 2019-06-14 11:25 | Emergency (ER) | payer OTHER ==
[2019-06-14] MEDS ORDERED: NA CHLORIDE 0.9% 1,000 ML ONE ×2 (12:15→13:53)
[2019-06-14 12:44] LABS: Absolute Lymphocytes (CBC) 1.2 K/uL (0.7-4.9); Basophils % 0.4 % (0-1.3); Hematocrit 42.8 % (39.6-49.0); Lymphocytes % 8.7 % (15.3-44.8); MPV 7.4 fL (7.6-11.3); RBC Red Blood Cell Count 4.43 M/uL (4.33-5.43)
[2019-06-14 12:56] LABS: Potassium 4.6 mmol/L (3.5-5.1); Uric Acid 5.1 mg/dL (3.5-7.2)
[2019-06-14] MEDS ORDERED: dexAMETHasone 10 MG/ML VIAL ONE (12:56)
[2019-06-14] MEDS ORDERED: DIAZEPAM 10 MG/2 ML INJ SYRINGE ONE (12:57)
--- NOTE | 2019-06-14 13:45 | EDPHYS ---
Physician Documentation [facility] Name: Dany Cárdenas Jr Age: 54 yrs Sex: Male : 1965 Arrival Date: 06/14/2019 Time: 11:31 Bed 26 Private MD: ED Physician Brice Rao HPI: 06/14 12:53 This 54 yrs old Male presents to ER via Wheelchair with complaints of Gout. snw 12:53 The patient presents with decreased range of motion, pain, that is acute, swelling, snw tenderness. The complaints affect the right ankle and left wrist. Context: The problem was sustained at home, resulted from "maybe I ate something", painful. Onset: The symptoms/episode began/occurred suddenly, 3 day(s) ago, and became worse and became persistent. Associated signs and symptoms: Pertinent positives: swelling. Severity of symptoms: At their worst the symptoms were moderate, severe. The patient has experienced similar episodes in the past, multiple times. The patient has not recently seen a physician, pt with difference of opinion with PCP and has not been in a while. Has not been taking allopurinol since . Historical: - Allergies: 11:39 No Known Allergies; iw - Home Meds: 11:39 None [Active]; iw - PMHx: 11:39 Gout; iw - PSHx: 11:39 None; iw - Immunization history:: Adult Immunizations up to date. - Social history:: Smoking status: Patient/guardian denies using tobacco. - Ebola Screening: : Patient negative for fever greater than or equal to 101.5 degrees Fahrenheit, and additional compatible Ebola Virus Disease symptoms Patient denies exposure to infectious person Patient denies travel to an Ebola-affected area in the 21 days before illness onset No symptoms or risks identified at this time. ROS: 12:52 Constitutional: Negative for fever, chills, and weight loss, Eyes: Negative for injury, snw pain, redness, and discharge, ENT: Negative for injury, pain, and discharge, Neck: Negative for injury, pain, and swelling, Cardiovascular: Negative for chest pain, palpitations, and edema, Respiratory: Negative for shortness of breath, cough, wheezing, and pleuritic chest pain, Abdomen/GI: Negative for abdominal pain, nausea, vomiting, diarrhea, and constipation, Back: Negative for injury and pain, : Negative for injury, bleeding, discharge, and swelling, Skin: Negative for injury, rash, and discoloration, Neuro: Negative for headache, weakness, numbness, tingling, and seizure. 12:52 MS/extremity: Positive for decreased range of motion, pain, swelling, of the right ankle and left wrist. Exam: 12:50 Constitutional: This is a well developed, well nourished patient who is awake, alert, snw and in no acute distress. Head/Face: Normocephalic, atraumatic. Eyes: Pupils equal round and reactive to light, extra-ocular motions intact. Lids and lashes normal. Conjunctiva and sclera are non-icteric and not injected. Cornea within normal limits. Periorbital areas with no swelling, redness, or edema. ENT: Nares patent. No nasal discharge, no septal abnormalities noted. Tympanic membranes are normal and external auditory canals are clear. Oropharynx with no redness, swelling, or masses, exudates, or evidence of obstruction, uvula midline. Mucous membranes moist. Neck: Trachea midline, no thyromegaly or masses palpated, and no cervical lymphadenopathy. Supple, full range of motion without nuchal rigidity, or vertebral point tenderness. No Meningismus. Chest/axilla: Normal chest wall appearance and motion. Nontender with no deformity. No lesions are appreciated. Cardiovascular: Regular rate and rhythm with a normal S1 and S2. No gallops, murmurs, or rubs. Normal PMI, no JVD. No pulse deficits. Respiratory: Lungs have equal breath sounds bilaterally, clear to auscultation and percussion. No rales, rhonchi or wheezes noted. No increased work of breathing, no retractions or nasal flaring. Abdomen/GI: Soft, non-tender, with normal bowel sounds. No distension or tympany. No guarding or rebound. No evidence of tenderness throughout. Back: No spinal tenderness. No costovertebral tenderness. Full range of motion. Skin: Warm, dry with normal turgor. Normal color with no rashes, no lesions, and no evidence of cellulitis. Neuro: Awake and alert, GCS 15, oriented to person, place, time, and situation. Cranial nerves II-XII grossly intact. Motor strength 5/5 in all extremities. Sensory grossly intact. Cerebellar exam normal. Normal gait. Psych: Awake, alert, with orientation to person, place and time. Behavior, mood, and affect are within normal limits. 12:50 Musculoskeletal/extremity: Extremities: grossly normal except: noted in the right ankle and left wrist: decreased ROM, swelling, tenderness, ROM: limited active range of motion due to pain, in the right ankle and left wrist, Circulation is intact in all extremities. Sensation intact. Vital Signs: 11:39 BP 163 / 100; Pulse 125; Resp 16 S; Temp 98.2(O); Pulse Ox 100% on R/A; Weight 66.68 iw kg; Height 5 ft. 4 in. (162.56 cm); Pain 10/10; 13:11 BP 153 / 100; Pulse 117; Resp 18; Temp 99; Pulse Ox 100% on R/A; mg2 14:29 BP 165 / 91; Pulse 110; Resp 18; Pulse Ox 100% on R/A; mg2 14:47 BP 158 / 81; Pulse 99; Resp 15; Temp 98(O); Pulse Ox 100% ; rv 11:39 Body Mass Index 25.23 (66.68 kg, 162.56 cm) iw MDM: 12:05 Patient medically screened. snw 13:48 Data reviewed: vital signs, nurses notes. Data interpreted: Pulse oximetry: on room air snw is 100 %. Interpretation: normal. Counseling: I had a detailed discussion with the patient and/or guardian regarding: the historical points, exam findings, and any diagnostic results supporting the discharge/admit diagnosis, lab results, the need for outpatient follow up, to return to the emergency department if symptoms worsen or persist or if there are any questions or concerns that arise at home. Special discussion: I have referred the patient to see his PCP for further evaluation of high blood pressure. Based on the history and exam findings, there is no indication for further emergent testing or inpatient evaluation. I discussed with the patient/guardian the need to see the primary care provider for further evaluation of the symptoms. 06/14 12:07 Order name: CBC with Diff; Complete Time: 12:50 snw 06/14 12:07 Order name: Chem 7; Complete Time: 13:09 snw 06/14 12:07 Order name: Uric Acid; Complete Time: 13:09 snw 06/14 13:10 Order name: Vital Signs; Complete Time: 13:27 snw 06/14 13:48 Order name: Wrist Splint: left; Complete Time: 13:56 snw 06/14 13:48 Order name: Walking boot: right; Complete Time: 13:56 snw Administered Medications: 12:30 Drug: NS 0.9% 1000 ml Route: IV; Rate: 1 bolus; Site: right forearm; mg2 13:55 Follow up: IV Status: Completed infusion; IV Intake: 1000ml mg2 13:10 Drug: Valium 2 mg Route: IVP; Site: right forearm; mg2 13:28 Follow up: Response: No adverse reaction; Marked relief of symptoms mg2 13:11 Drug: Decadron - Dexamethasone 10 mg Route: IVP; Site: right forearm; mg2 13:28 Follow up: Response: No adverse reaction; Marked relief of symptoms mg2 13:55 Drug: NS 0.9% 1000 ml Route: IV; Rate: 1 bolus; Site: right antecubital; mg2 14:48 Follow up: IV Status: Completed infusion; IV Intake: 1000ml rv Disposition: 06/14/19 13:44 Discharged to Home. Impression: Gout. - Condition is Stable. - Discharge Instructions: Cast or Splint Care, Adult, Gout, Low-Purine Diet. - Prescriptions for Prednisone 20 mg Oral Tablet - take 2 tablet by ORAL route once daily for 5 days; 10 tablet. Pepcid 20 mg Oral Tablet - take 1 tablet by ORAL route once daily for 10 days; 10 tablet. - Medication Reconciliation Form, Thank You Letter, Antibiotic Education, Prescription Opioid Use form. - Follow up: Private Physician; When: 2 - 3 days; Reason: Recheck today's complaints, Continuance of care, Re-evaluation by your physician. Addendum: 06/19/2019 09:42 Co-signature as Attending Physician, Brice Rao MD I agree with the assessment and k dr plan of care. Signatures: Dispatcher [employer] EDMD Brice Rao MD MD [facility] Jen Max, OPERATIONS SUPPORT REPRESENTATIVE-C OPERATIONS SUPPORT REPRESENTATIVE-Csnw Analisa Giron RN RN iw Marcelo Mejia RN RN mg2 Henri Toth RN RN rv Corrections: (The following items were deleted from the chart) 06/14 14:55 13:44 06/14/2019 13:44 Discharged to Home. Impression: Gout. Condition is Stable. Forms rv are Medication Reconciliation Form, Thank You Letter, Antibiotic Education, Prescription Opioid Use. Follow up: Private Physician; When: 2 - 3 days; Reason: Recheck today's complaints, Continuance of care, Re-evaluation by your physician. malou
--- NOTE | 2019-06-14 13:45 | ER ---
Nurse's Notes [facility] Name: Dany Cárdenas Jr Age: 54 yrs Sex: Male : 1965 Arrival Date: 06/14/2019 Time: 11:31 Bed 26 Private MD: Diagnosis: Gout Presentation: 06/14 11:37 Presenting complaint: Patient states: gout flare up to right foot X 3 days. Transition iw of care: patient was not received from another setting of care. Onset of symptoms was June 11, 2019. Risk Assessment: Do you want to hurt yourself or someone else? Patient reports no desire to harm self or others. Initial Sepsis Screen: Does the patient meet any 2 criteria? No. Patient's initial sepsis screen is negative. Does the patient have a suspected source of infection? No. Patient's initial sepsis screen is negative. Care prior to arrival: None. 11:37 Method Of Arrival: Wheelchair iw 11:37 Acuity: PAVITHRA 3 iw Historical: - Allergies: 11:39 No Known Allergies; iw - Home Meds: 11:39 None [Active]; iw - PMHx: 11:39 Gout; iw - PSHx: 11:39 None; iw - Immunization history:: Adult Immunizations up to date. - Social history:: Smoking status: Patient/guardian denies using tobacco. - Ebola Screening: : Patient negative for fever greater than or equal to 101.5 degrees Fahrenheit, and additional compatible Ebola Virus Disease symptoms Patient denies exposure to infectious person Patient denies travel to an Ebola-affected area in the 21 days before illness onset No symptoms or risks identified at this time. Screenin:32 Abuse screen: Denies threats or abuse. Denies injuries from another. Nutritional mg2 screening: No deficits noted. Tuberculosis screening: No symptoms or risk factors identified. Fall Risk IV access (20 points). Gait- Weak (10 pts.). Assessment: 12:30 General: Appears in no apparent distress. comfortable, Behavior is calm, cooperative. mg2 Pain: Complains of pain in left wrist and right foot Pain does not radiate. Pain currently is 10 out of 10 on a pain scale. Quality of pain is described as aching, Pain began gradually, Is intermittent. Neuro: Level of Consciousness is awake, alert, obeys commands, Oriented to person, place, time, situation. Cardiovascular: Capillary refill < 3 seconds Patient's skin is warm and dry. Respiratory: Airway is patent Respiratory effort is even, unlabored, Respiratory pattern is regular, symmetrical. GI: No signs and/or symptoms were reported involving the gastrointestinal system. : No signs and/or symptoms were reported regarding the genitourinary system. EENT: No signs and/or symptoms were reported regarding the EENT system. Derm: Skin is intact, is healthy with good turgor, Skin is pink, warm \T\ dry. normal. Musculoskeletal: Circulation, motion, and sensation intact. Capillary refill < 3 seconds, Swelling present in right foot and left arm. 14:12 Reassessment: patient for discharge after completing the iv fluid. mg2 14:29 Reassessment: Patient states feeling better. mg2 Vital Signs: 11:39 BP 163 / 100; Pulse 125; Resp 16 S; Temp 98.2(O); Pulse Ox 100% on R/A; Weight 66.68 iw kg; Height 5 ft. 4 in. (162.56 cm); Pain 10/10; 13:11 BP 153 / 100; Pulse 117; Resp 18; Temp 99; Pulse Ox 100% on R/A; mg2 14:29 BP 165 / 91; Pulse 110; Resp 18; Pulse Ox 100% on R/A; mg2 14:47 BP 158 / 81; Pulse 99; Resp 15; Temp 98(O); Pulse Ox 100% ; rv 11:39 Body Mass Index 25.23 (66.68 kg, 162.56 cm) iw ED Course: 11:31 Patient arrived in ED. as 11:38 Triage completed. iw 11:39 Arm band placed on. iw 11:42 Jen Max FNP-C is PHCP. snw 11:42 Brice Rao MD is Attending Physician. snw 11:58 Henri Toth RN is Primary Nurse. rv 12:32 Patient has correct armband on for positive identification. mg2 12:32 No provider procedures requiring assistance completed. Inserted saline lock: 22 gauge mg2 in right forearm, using aseptic technique. Blood collected. 13:59 Velcro wrist splint applied to left wrist. applied a walker air low top medium boot to lt1 right foot. 14:48 IV discontinued, intact, bleeding controlled, No redness/swelling at site. Pressure rv dressing applied. Administered Medications: 12:30 Drug: NS 0.9% 1000 ml Route: IV; Rate: 1 bolus; Site: right forearm; mg2 13:55 Follow up: IV Status: Completed infusion; IV Intake: 1000ml mg2 13:10 Drug: Valium 2 mg Route: IVP; Site: right forearm; mg2 13:28 Follow up: Response: No adverse reaction; Marked relief of symptoms mg2 13:11 Drug: Decadron - Dexamethasone 10 mg Route: IVP; Site: right forearm; mg2 13:28 Follow up: Response: No adverse reaction; Marked relief of symptoms mg2 13:55 Drug: NS 0.9% 1000 ml Route: IV; Rate: 1 bolus; Site: right antecubital; mg2 14:48 Follow up: IV Status: Completed infusion; IV Intake: 1000ml rv Intake: 13:55 IV: 1000ml; Total: 1000ml. mg2 14:48 IV: 1000ml; Total: 2000ml. rv Outcome: 13:44 Discharge ordered by MD. snw 14:47 Discharged to home ambulatory, with family. rv 14:47 Condition: improved 14:47 Discharge instructions given to patient, family, Instructed on discharge instructions, follow up and referral plans. medication usage, Demonstrated understanding of instructions, follow-up care, medications, Prescriptions given X 2. 14:55 Patient left the ED. rv Signatures: Jen Max, RELOCATION DIRECTOR-C RELOCATION DIRECTOR-Csnw Starr Arreaga Irene, RN RN Marcelo Mejia RN RN [facility] Henri Toth RN RN Carrillo, [facility] Corrections: (The following items were deleted from the chart) 11:40 11:37 Acuity: PAVITHRA 4 iw iw 11:40 11:39 Resp 16bpm; Spontaneous; Pulse Ox 100% RA; Temp 98.2F Oral; 66.68 kg; Height 5 iw ft. 4 in.; BMI: 25.2; Pain 07/13; iw
[2019-06-14 15:15] VITALS: O2SAT 100
[2019-06-14 15:19] VITALS: BP 158/81; TEMP 98
== END 2019-06-14 14:55 | disposition home or self-care (01) ==
LOC: ER 11:25
DX: M10.9 Gout, unspecified (principal)
CPT/HCPCS: 96361; 85025; 80048; 36415; 84550; 96375; 96374; 99284; J3360; J1100; J7030 ×2

== ENCOUNTER 2021-09-26 14:12 | Emergency (ER) | payer OTHER, SELFPAY ==
[2021-09-26 15:05] LABS: Absolute Lymphocytes (CBC) 1.8 K/uL (0.7-4.9); Basophils % 0.2 % (0-1.3); Hematocrit 45.5 % (39.6-49.0); Lymphocytes % 14.5 % (15.3-44.8); MPV 7.9 fL (7.6-11.3); RBC Red Blood Cell Count 4.55 M/uL (4.33-5.43)
[2021-09-26 15:08] LABS: Protime INR 0.87
--- NOTE | 2021-09-26 15:15 | RAD REPORT ---
EXAM DESCRIPTION: RAD - Chest Single View - 09/26/2021 3:03 pm CLINICAL HISTORY: dizziness Chest pain. COMPARISON: Chest Pa And Lat (2 Views) dated 03/22/2017; CHEST PA AND LAT 2 VIEW dated 08/04/2012; [facility] PA AND LAT 2 VIEW dated 05/02/2009 FINDINGS: Portable technique limits examination quality. The lungs are grossly clear. The heart is normal in size. No displaced fractures. IMPRESSION: No acute intrathoracic process suspected.
--- NOTE | 2021-09-26 15:17 | RAD REPORT ---
EXAM DESCRIPTION: CT - Head Brain Wo Cont - 09/26/2021 3:10 pm CLINICAL HISTORY: HEADACHE Headache, drowsiness COMPARISON: No comparisons TECHNIQUE: All CT scans are performed using dose optimization technique as appropriate and may inclu de automated exposure control or mA/KV adjustment according to patient size. FINDINGS: No intracranial hemorrhage, hydrocephalus or extra-axial fluid collection.Moderate brain a trophy is present.No areas of brain edema or evidence of midline shift. Small polyps in both maxillary antra. The paranasal sinuses mastoids are otherwise clear. The calvari um is intact. IMPRESSION: No acute intracranial abnormality.
[2021-09-26 15:32] LABS: ALT/SGPT 37 U/L (12-78); AST/SGOT 23 U/L (15-37); Albumin 3.9 g/dL (3.4-5.0); Alkaline Phosphatase 92 U/L (45-117); BUN Blood Urea Nitrogen 22 mg/dL (7-18); Bicarbonate 25 mmol/L (21-32); Bilirubin Direct < 0.1 mg/dL (0-0.2); Bilirubin Total 0.3 mg/dL (0.2-1.0); Glucose Level 114 mg/dL (74-106); NT PRO-BNP 128 pg/mL (<125); Potassium 3.9 mmol/L (3.5-5.1); Protein, Total 8.4 g/dL (6.4-8.2); Sodium Level 140 mmol/L (136-145); Troponin (Emerg Dept Use Only) 0.05 ng/mL (0.0-0.045)
[2021-09-26] MEDS ORDERED: LORAZEPAM 1 MG TABLET ONE (15:46)
--- NOTE | 2021-09-26 17:41 | EDPHYS ---
Physician Documentation [facility] Name: Dany Cárdenas Jr Age: 56 yrs Sex: Male : 1965 Arrival Date: 09/26/2021 Time: 14:14 Bed 13 Private MD: ED Physician Kodi Cash HPI: 09/26 15:57 This 56 yrs old Male presents to ER via Ambulatory with complaints of Numbness Of ma2 Arm. 15:57 This 56 yrs old Male presents to ER via Ambulatory with complaints of Numbness Of ma2 Arm. 15:57 The patient or guardian complains of an abrasion, an abscess. Onset: The ma2 symptoms/episode began/occurred gradually, 2 day(s) ago. Associated signs and symptoms: Pertinent negatives: fever, pain, tingling, warmth. Severity of symptoms: At their worst the symptoms were very mild, in the emergency department the symptoms have resolved. The patient has experienced similar episodes in the past. Historical: - Allergies: 15:22 No Known Allergies; tw2 - Home Meds: 14:28 None [Active]; ss - PMHx: 14:28 Gout; ss - Immunization history:: Client reports receiving the 2nd dose of the Covid vaccine. - Social history:: Smoking status: Patient denies any tobacco usage or history of. - Family history:: not pertinent. ROS: 15:57 Constitutional: Negative for fever, chills, and weight loss. ma2 15:57 All other systems are negative. Exam: 15:57 Constitutional: This is a well developed, well nourished patient who is awake, alert, ma2 and in no acute distress. Head/Face: Normocephalic, atraumatic. Eyes: Pupils equal round and reactive to light, extra-ocular motions intact. Lids and lashes normal. Conjunctiva and sclera are non-icteric and not injected. Cornea within normal limits. Periorbital areas with no swelling, redness, or edema. ENT: Nares patent. No nasal discharge, no septal abnormalities noted. Tympanic membranes are normal and external auditory canals are clear. Oropharynx with no redness, swelling, or masses, exudates, or evidence of obstruction, uvula midline. Mucous membranes moist. Neck: Trachea midline, no thyromegaly or masses palpated, and no cervical lymphadenopathy. Supple, full range of motion without nuchal rigidity, or vertebral point tenderness. No Meningismus. Chest/axilla: Normal chest wall appearance and motion. Nontender with no deformity. No lesions are appreciated. Cardiovascular: Regular rate and rhythm with a normal S1 and S2. No gallops, murmurs, or rubs. Normal PMI, no JVD. No pulse deficits. Respiratory: Lungs have equal breath sounds bilaterally, clear to auscultation and percussion. No rales, rhonchi or wheezes noted. No increased work of breathing, no retractions or nasal flaring. Abdomen/GI: Soft, non-tender, with normal bowel sounds. No distension or tympany. No guarding or rebound. No evidence of tenderness throughout. Back: No spinal tenderness. No costovertebral tenderness. Full range of motion. Skin: Warm, dry with normal turgor. Normal color with no rashes, no lesions, and no evidence of cellulitis. MS/ Extremity: Pulses equal, no cyanosis. Neurovascular intact. Full, normal range of motion. Neuro: Awake and alert, GCS 15, oriented to person, place, time, and situation. Cranial nerves II-XII grossly intact. Motor strength 5/5 in all extremities. Sensory grossly intact. Cerebellar exam normal. Normal gait. Vital Signs: 14:26 BP 192 / 107; Pulse 81; Resp 16; Temp 98.3(TE); Pulse Ox 100% on R/A; Weight 102.06 kg; ss Height 5 ft. 7 in. (170.18 cm); Pain 3/10; 15:22 BP 191 / 104; Pulse 55; Resp 23; Pulse Ox 100% on R/A; tw2 16:00 BP 164 / 83; Pulse 51; Resp 20; Pulse Ox 100% on R/A; tw2 16:42 BP 174 / 85; Pulse 61; Resp 24; Pulse Ox 99% on R/A; tw2 18:05 BP 149 / 90; Pulse 57; Resp 22; Pulse Ox 100% on R/A; tw2 14:26 Body Mass Index 35.24 (102.06 kg, 170.18 cm) MDM: 14:38 Patient medically screened. ma2 15:57 Differential diagnosis: contusion, abrasion, tendonitis. ma2 16:17 Data reviewed: vital signs, nurses notes. Counseling: I had a detailed discussion with patel the patient and/or guardian regarding: the historical points, exam findings, and any diagnostic results supporting the discharge/admit diagnosis, the presence of at least one elevated blood pressure reading (>120/80) during this emergency department visit, the need for outpatient follow up. Response to treatment: the patient's symptoms have markedly improved after treatment. ED course: Blood pressure improved, however troponin is positive, 0.05 I recommend admission, recheck troponin, patient also have epigastric abdominal pain. HI cannot be ruled out. However patient would like to be discharged AMA. Despite my recommendation. He understands risk of leaving AMA that includes having an HI, and . He understands all risk. He will return to ER for any worsening of his symptoms.. 09/26 14:34 Order name: Basic Metabolic Panel; Complete Time: 16:02 wv09/26 14:34 Order name: CBC with Diff; Complete Time: 15:28 wv09/26 14:34 Order name: LFT's; Complete Time: 16:02 09/26 14:34 Order name: Magnesium; Complete Time: 16:02 wv09/26 14:34 Order name: NT PRO-BNP; Complete Time: 16:02 wv09/26 14:34 Order name: PT-INR; Complete Time: 15:28 09/26 14:34 Order name: Troponin (emerg Dept Use Only); Complete Time: 16:02 wv09/26 14:34 Order name: XRAY Chest (1 view); Complete Time: 15:28 wv09/26 14:34 Order name: EKG; Complete Time: 14:35 09/26 14:34 Order name: Cardiac monitoring; Complete Time: 15:33 09/26 14:34 Order name: EKG - Nurse/Tech; Complete Time: 14:56 09/26 14:34 Order name: CT Head Brain wo Cont; Complete Time: 15:28 wv09/26 16:46 Order name: Troponin (emerg Dept Use Only): repeat please; Complete Time: 17:38 ma09/26 14:34 Order name: IV Saline Lock; Complete Time: 14:56 wv2 09/26 14:34 Order name: Labs collected and sent; Complete Time: 14:56 ma2 09/26 14:34 Order name: O2 Per Protocol; Complete Time: 15:33 ma2 09/26 14:34 Order name: O2 Sat Monitoring; Complete Time: 15:33 ma2 Administered Medications: 15:50 Drug: Ativan (LORazepam) 1 mg Route: PO; tw2 18:05 Follow up: Response: No adverse reaction tw2 Disposition Summary: 09/26/21 17:40 Left Against Medical Advice Location: Home ma2 Problem: new ma2 Symptoms: are unchanged ma2 Condition: Critical ma2 Diagnosis - Essential (primary) hypertension ma2 - Subsequent non-ST elevation (NSTEMI) myocardial infarction ma2 Followup: ma2 - With: Private Physician - When: Tomorrow - Reason: Continuance of care Discharge Instructions: - Discharge Summary Sheet ma2 - Hypertension, Adult ma2 - Troponin Test ma2 Prescriptions: - metoprolol succinate 25 mg Oral tablet extended release 24 hr - take 1 tablet by ORAL route once daily; 10 tablet; Refills: 0, Product ma2 Selection Permitted Signatures: Dispatcher [employer] Chinyere Cabello RN RN Evonne Donnelly RN RN tw2 Kodi Cash MD MD wv2
--- NOTE | 2021-09-26 17:41 | ER ---
Nurse's Notes [facility] Name: Dany Cárdenas Jr Age: 56 yrs Sex: Male : 1965 Arrival Date: 09/26/2021 Time: 14:14 Bed 13 Private MD: Diagnosis: Essential (primary) hypertension;Subsequent non-ST elevation (NSTEMI) myocardial infarction Presentation: 09/26 14:26 Chief complaint: Patient states: numbness to bilateral arms and face that began 1 hour ss ago while driving to the store. Coronavirus screen: Client denies travel out of the [place] in the last 14 days. Ebola Screen: Patient denies exposure to infectious person. Patient denies travel to an Ebola-affected area in the 21 days before illness onset. Initial Sepsis Screen: Does the patient meet any 2 criteria? No. Patient's initial sepsis screen is negative. Does the patient have a suspected source of infection? No. Patient's initial sepsis screen is negative. Risk Assessment: Do you want to hurt yourself or someone else? Patient reports no desire to harm self or others. Onset of symptoms was September 26, 2021. 14:26 Method Of Arrival: Ambulatory ss 14:26 Acuity: PAVITHRA 2 ss Historical: - Allergies: 15:22 No Known Allergies; tw2 - Home Meds: 14:28 None [Active]; ss - PMHx: 14:28 Gout; ss - Immunization history:: Client reports receiving the 2nd dose of the Covid vaccine. - Social history:: Smoking status: Patient denies any tobacco usage or history of. - Family history:: not pertinent. Screenin:23 Abuse screen: Denies threats or abuse. Nutritional screening: No deficits noted. tw2 Tuberculosis screening: No symptoms or risk factors identified. Fall Risk None identified. Assessment: 16:43 Reassessment: Patient appears in no apparent distress at this time. No changes from tw2 previously documented assessment. Patient and/or family updated on plan of care and expected duration. Pain level reassessed. Patient is alert, oriented x 3, equal unlabored respirations, skin warm/dry/pink. Vital Signs: 14:26 BP 192 / 107; Pulse 81; Resp 16; Temp 98.3(TE); Pulse Ox 100% on R/A; Weight 102.06 kg; ss Height 5 ft. 7 in. (170.18 cm); Pain 3/10; 15:22 BP 191 / 104; Pulse 55; Resp 23; Pulse Ox 100% on R/A; tw2 16:00 BP 164 / 83; Pulse 51; Resp 20; Pulse Ox 100% on R/A; tw2 16:42 BP 174 / 85; Pulse 61; Resp 24; Pulse Ox 99% on R/A; tw2 18:05 BP 149 / 90; Pulse 57; Resp 22; Pulse Ox 100% on R/A; tw2 14:26 Body Mass Index 35.24 (102.06 kg, 170.18 cm) ED Course: 14:14 Patient arrived in ED. ds1 14:28 Triage completed. 14:28 Arm band placed on right wrist. 14:34 Kodi Cash MD is Attending Physician. ma2 14:38 Bed in low position. Call light in reach. dental equipment repairer on. Pulse ox on. NIBP on. tw2 14:45 Initial lab(s) drawn, by ne, sent to lab. Inserted saline lock: 20 gauge in left [facility] antecubital area, using aseptic technique. Blood collected. 14:57 EKG done, by ED staff, reviewed by Kodi Cash MD. 3 15:03 XRAY Chest (1 view) In Process Unspecified. EDMS 15:10 CT Head Brain wo Cont In Process Unspecified. EDMS 15:21 Evonne Donnelly, RN is Primary Nurse. tw2 17:01 Troponin (emerg Dept Use Only): repeat please Sent. 3 18:23 No provider procedures requiring assistance completed. IV discontinued, intact, tw2 bleeding controlled, No redness/swelling at site. Pressure dressing applied. Administered Medications: 15:50 Drug: Ativan (LORazepam) 1 mg Route: PO; tw2 18:05 Follow up: Response: No adverse reaction tw2 Outcome: 18:23 AMA AMA form signed tw2 18:23 Condition: stable 18:23 Patient left the ED. tw2 Signatures: Dispatcher [employer] EDMA Elinor Molina ds1 Chinyere Garduno RN RN Evonne Donnelly RN RN tw2 Connie Chino [facility] Kodi Cash MD MD [facility]
[2021-09-26 18:41] VITALS: TEMP 98.3
[2021-09-26 18:46] VITALS: BP 149/90; O2SAT 100
== END 2021-09-26 18:23 | disposition left against medical advice (07) ==
LOC: ER 14:12
DX: I10 Essential (primary) hypertension (principal); I22.2 Subsequent non-ST elevation (NSTEMI) myocardial infarction
CPT/HCPCS: 36415; 70450; 71045; 80048; 80076; 83735; 83880; 84484; 85025; 85610; 93005; 99284